=== PATIENT | female | born 1950 | race Two or more races ===

== ENCOUNTER 2016-09-26 13:27 | Emergency (ER) | payer OTHER ==
[~2016-09-26] VITALS: Ht 165.1 cm; Wt 74.8 kg
[2016-09-26 13:32] VITALS: BP 133/100
[2016-09-26] MEDS ORDERED: BENZONATATE 100 MG CAPSULE PO STA (13:34)
== END 2016-09-26 14:25 | disposition home or self-care (01) ==
LOC: ER 13:28
DX: R05 Cough (principal); M79.1 Myalgia; I10 Essential (primary) hypertension; E78.5 Hyperlipidemia, unspecified; J45.909 Unspecified asthma, uncomplicated; R10.9 Unspecified abdominal pain; K74.60 Unspecified cirrhosis of liver
CPT/HCPCS: A4606; Z7610